=== PATIENT | male | born 1995 | race Caucasian/White ===

== ENCOUNTER 2016-08-17 06:45 | Inpatient (IN) | payer OTHER ==
[~2016-08-17] VITALS: Ht 188 cm; Wt 92.0 kg
[2016-08-17 06:57] VITALS: BP 117/71; PULSE 77; RESP 20; TEMP 98.1; O2SAT 97
[2016-08-17 07:29] LABS: AUTOMATED NEUTROPHIL # 3.4 TH/MM3 (1.8-7.7); BASOPHIL % 0.6 % (0.0-2.0); EOSINOPHIL # 0.1 TH/MM3 (0-0.4); EOSINOPHIL % 1.8 % (0.0-4.0); HEMATOCRIT 45.7 % (39.0-51.0); HEMO FLAGS DIFF FINAL; LYMPH % 24.9 % (9.0-44.0); LYMPHOCYTE # 1.3 TH/MM3 (1.0-4.8); MEAN CELL VOLUME 88.4 FL (80.0-100.0); MEAN CORPUSCULAR HEMOGLOBIN 29.6 PG (27.0-34.0); MEAN CORPUSCULAR HGB CONC 33.5 % (32.0-36.0); MONO % 9.5 % (0.0-8.0); NEUT % 63.2 % (16.0-70.0); PLATELET COUNT 135 TH/MM3 (150-450); RED BLOOD COUNT 5.17 MIL/MM3 (4.50-5.90); RED CELL DISTRIBUTION WIDTH 13.1 % (11.6-17.2); WHITE BLOOD COUNT 5.4 TH/MM3 (4.0-11.0)
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
[2016-08-17] MEDS ORDERED: ZYRT10CA PO (07:55)
[2016-08-17] MEDS ORDERED: ARIP1TAB5 PO (07:55)
[2016-08-17] MEDS ORDERED: TRIL135C PO (07:55)
[2016-08-17] MEDS ORDERED: ZIPR40 PO (07:55)
[2016-08-17] MEDS ORDERED: VIST25CA PO (07:55)
[2016-08-17 07:56] LABS: ANION GAP 8 MEQ/L (5-15); BICARBONATE 28.1 MEQ/L (21.0-32.0); BLOOD UREA NITROGEN 11 MG/DL (7-18); CHLORIDE 109 MEQ/L (98-107); GLOMERULAR FILTRATION RATE 90 ML/MIN (>89); POTASSIUM 3.8 MEQ/L (3.5-5.1); SODIUM (NA) 145 MEQ/L (136-145)
[2016-08-17 08:10] LABS: BLOOD, URINE NEG (NEG); COMMENT (UR) CULT NOT INDICATED; CULTURE IF INDICATED CULT NOT INDICATED; GLUCOSE,URINE NEG (NEG); HYALINE CAST, URINE 1 /lpf (RARE); KETONE, URINE NEG (NEG); MUCUS URINE FEW /lpf (OCC); NITRITE,URINE NEG (NEG); PH, URINE 5.5 (5.0-8.5); URINE COLOR YELLOW (YELLW/STRAW)
[2016-08-17 08:11] LABS: AMPHETAMINE, URINE NEG (NEG); BARBITURATES, URINE NEG (NEG); COCAINE, URINE NEG (NEG)
[2016-08-17 08:49] VITALS: BP 122/73
[2016-08-17 09:56] VITALS: BP 126/58; PULSE 70; RESP 16; TEMP 98.2; O2SAT 98
[2016-08-17] MEDS ORDERED: traZODone HCL 50 MG TAB PO PRN (14:30)
[2016-08-17] MEDS ORDERED: BENZTROPINE MESYLATE 1 MG TAB PO PRN (14:30)
[2016-08-17] MEDS ORDERED: LORazepam 1 MG TAB PO PRN (14:30)
[2016-08-17] MEDS ORDERED: MAGNESIUM HYDROXIDE SUSP 30 ML CUP PO PRN (14:30)
[2016-08-17] MEDS ORDERED: ACETAMINOPHEN 325 MG TAB PO PRN (14:30)
[2016-08-17] MEDS ORDERED: BENZTROPINE MESYLATE 2 MG/2 ML VIAL IM PRN (14:30)
[2016-08-17] MEDS ORDERED: ALUMINUM/MAGNESIUM/SIMETH 30 ML CUP PO PRN (14:30)
[2016-08-17] MEDS ORDERED: LORazepam 2 MG/ML VIAL IM PRN (14:30)
[2016-08-17 15:44] VITALS: BP 129/77; PULSE 78; RESP 18; TEMP 98.9; O2SAT 100
[2016-08-17 19:41] VITALS: BP 131/67; PULSE 66; RESP 18; TEMP 99.5; O2SAT 98
[2016-08-17] MEDS: hydrOXYzine HCL 25 MG TAB PO SCH (22:14)
[2016-08-17] MEDS: ZIPRASIDONE HCL 40 MG CAP PO SCH (22:14)
[2016-08-17] MEDS: FENOFIBRATE 145 MG TAB PO SCH (22:14)
[2016-08-18 06:00] VITALS: BP 108/60; PULSE 60; RESP 18; TEMP 97.7; O2SAT 98
[2016-08-18 07:56] LABS: HDL CHOLESTEROL 39.2 MG/DL (40.0-60.0); LDL CHOLESTEROL 54 MG/DL (0-99)
[2016-08-18] MEDS: ARIPiprazole 10 MG TAB PO SCH (08:48)
[2016-08-18] MEDS: CETIRIZINE HCL 10 MG TAB PO SCH (08:48)
[2016-08-18] MEDS: FENOFIBRATE 145 MG TAB PO SCH ×2 (08:48→21:04)
[2016-08-18] MEDS: ZIPRASIDONE HCL 40 MG CAP PO SCH ×2 (08:48→21:04)
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
[2016-08-18 18:00] VITALS: BP 102/59; PULSE 59
[2016-08-18 18:03] LABS: HEMOGLOBIN A1a 1.1 %; HEMOGLOBIN A1b 0.6 %; HEMOGLOBIN Ao 87.1 %; HEMOGLOBIN F 0.9 %; HEMOGLOBIN LA1C 1.7 %; HEMOGLOBIN P3 3.1 %
[2016-08-18 18:37] VITALS: BP 102/59; PULSE 59; RESP 18; TEMP 98.1; O2SAT 100
[2016-08-18] MEDS: hydrOXYzine HCL 25 MG TAB PO SCH (21:04)
[2016-08-19 06:00] VITALS: BP 95/54; PULSE 55; RESP 16; TEMP 97.2; O2SAT 98
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
[2016-08-19] MEDS: ZIPRASIDONE HCL 40 MG CAP PO SCH ×2 (09:43→20:46)
[2016-08-19] MEDS: ARIPiprazole 10 MG TAB PO SCH (09:43)
[2016-08-19] MEDS: FENOFIBRATE 145 MG TAB PO SCH ×2 (09:43→20:46)
[2016-08-19] MEDS: CETIRIZINE HCL 10 MG TAB PO SCH (09:43)
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
[2016-08-19] MEDS: FLUTICASONE PROPIONATE 50 MCG/ACT 16 GM NASAL SPRAY EACH NARE SCH (17:45)
[2016-08-19] MEDS ORDERED: guaiFENesin/DEXTROMETHORPHAN 200 MG/20 MG/10 ML CUP PO PRN (17:45)
[2016-08-19] MEDS ORDERED: RESP: ALBUTEROL 2.5 MG/IPRATROPIUM 0.5 MG NEB (PRN) NEB (17:45)
[2016-08-19 18:00] VITALS: BP 101/53; PULSE 68; RESP 17; TEMP 97.9; O2SAT 99
[2016-08-19] MEDS: hydrOXYzine HCL 25 MG TAB PO SCH (20:46)
[2016-08-20 05:29] VITALS: BP 89/49; PULSE 53; RESP 18; TEMP 97.2; O2SAT 100
[2016-08-20] MEDS: FLUTICASONE PROPIONATE 50 MCG/ACT 16 GM NASAL SPRAY EACH NARE SCH (09:20)
[2016-08-20] MEDS: FENOFIBRATE 145 MG TAB PO SCH ×2 (09:21→21:35)
[2016-08-20] MEDS: ZIPRASIDONE HCL 40 MG CAP PO SCH ×2 (09:21→21:35)
[2016-08-20] MEDS: CETIRIZINE HCL 10 MG TAB PO SCH (09:21)
[2016-08-20] MEDS: ARIPiprazole 10 MG TAB PO SCH (09:21)
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
[2016-08-20 19:16] VITALS: BP 107/60; PULSE 71; RESP 16; TEMP 99.2; O2SAT 100
[2016-08-20] MEDS: hydrOXYzine HCL 25 MG TAB PO SCH (21:35)
[2016-08-21 06:08] VITALS: BP 94/41; PULSE 61; RESP 16; TEMP 98; O2SAT 99
[2016-08-21] MEDS: ARIPiprazole 10 MG TAB PO SCH (08:51)
[2016-08-21] MEDS: CETIRIZINE HCL 10 MG TAB PO SCH (08:51)
[2016-08-21] MEDS: FENOFIBRATE 145 MG TAB PO SCH (08:51)
[2016-08-21] MEDS: FLUTICASONE PROPIONATE 50 MCG/ACT 16 GM NASAL SPRAY EACH NARE SCH (08:51)
[2016-08-21] MEDS: ZIPRASIDONE HCL 40 MG CAP PO SCH (08:52)
--- NOTE | 2016-08-21 11:25 | HHI.PYPN ---
Subjective Remarks Patient seen and examined with counselor and nurse. Chart reviewed. Case discussed with nursing staff. No behavioral issues noted. On my examination today, patient is calm and pleasant. He denies any SI, HI or AVH. He denies any side effects from medications. Patient's discharge had to be held yesterday because patient's facility refused to take him back even after they had told me initially that they would accept the patient back. Review of Systems ROS Limitations: Poor Historian Other No physical complaints today Objective Alert: Yes [place]: Person, Place Mood: Calm Affect: Blunted Memory Intact: Comment (not assessed today) Hallucinations: Other (again denies audiovisual hallucinations) Delusions: No Delusion Type: Other (no evidence of any delusional material) Suicidal: Ideation (denies suicidal ideation) Homicidal: Ideation (denies homicidal ideation) Insight/Judgement Poor, chronically so Remarks No abnormal motor movements noted. Labs Labs reviewed. No new labs. Vitals/IOs Vital Signs Date Time Temp Pulse Resp B/P Pulse Ox O2 Delivery O2 Flow Rate FiO2 08/21/16 06:08 98.0 61 16 94/41 99 08/17/16 09:56 Room Air Assessment & Plan Problem List: (1) Violent behavior Assessment & Plan: No evidence of any ongoing violent behavior on the inpatient psychiatric unit. No evidence of any unstable mood, anxiety or psychotic disorder that might have contributed to violent behavior. ICD Code: R45.6 (2) Intellectual disability ICD Code: F79 Assessment & Plan Continue current psychotropics as ordered. Continue other medications and care as ordered. Justification for Cont. Inpt. Discharge planning Discharge Planning Patient's facility has refused to take him back. Counselor is working on alternative disposition plans. Request HC Surrog/Guard Advoc?: Yes Lisandro Luis MD Aug 21, 2016 11:25
== END 2016-08-21 17:15 | DRG 880 ==
LOC: NEPA 06:45 → NEDA 13:29 → H270 14:03
PROVIDERS: ADMIT Psychiatry & Neurology Psychiatry; ATTEND Psychiatry & Neurology Psychiatry
DX: R45.6 Violent behavior (principal); F79 Unspecified intellectual disabilities; R05 Cough; R09.81 Nasal congestion; Z88.0 Allergy status to penicillin
CPT/HCPCS: 80048; 80061; 80307; 80320; 81001; 83036; 85025; 99284